=== PATIENT | male | born 1940 | race Caucasian/White ===

== ENCOUNTER 2024-04-29 15:44 | Inpatient (IN) ==
--- NOTE | 2024-04-29 16:07 | ED Triage Note ---
Date of Service April 29, 2024 Provider in Triage Author: Stephon Noyola History of Present Illness This patient was briefly evaluated while in triage. An abbreviated physical exam was performed. This patient is a 83-year-old Male who presents to the ED for evaluation called by PCP this afternoon "I'm in renal failure" "abnormal potassium" stopped Lisinopril on Monday due to abnormal labs had labs rechecked at [facility] this morning patient reports no symptoms current treatment for bladder cancer Physical Exam GENERAL: NAD CARDIOVASCULAR: RRR RESPIRATORY: CTA Initial orders for labs and / or imaging were placed and patient was placed in the waiting area until a bed is available. Please see further documentation for the full ED course.
[2024-04-29 17:21] LABS: Appearance Urine Cloudy (Clear); Bacteria Urine Automated None Seen (None Seen); Bilirubin Urine Negative (Negative); Blood Urine 1+ (Negative); Color Urine Yellow; Epithelial Cell Urine Auto 0-2 /hpf (0-2); Glucose Urine UA 3+ (Negative); Ketones Urine Negative (Negative); Leukocyte Esterase Urine Trace (Negative); Nitrite Urine Negative (Negative); Protein Urine 2+ (Negative); RBC Urine Automated 0-2 /hpf (0-2); Specific Gravity Urine 1.012 (1.000-1.030); Urobilinogen Urine Negative (Negative); WBC Urine Automated 21-50 /hpf (0-5); pH Urine 5.5 (4.5-7.5)
[2024-04-29 17:30] LABS: Basophils # (auto) 0.03 K/uL (0.00-0.20); Basophils % (auto) 0.6 %; Eosinophils # (auto) 0.16 K/uL (0.00-0.50); Eosinophils % (auto) 2.9 %; Hematocrit (blood only) 33.1 % (42.0-52.0); Hemoglobin 10.9 g/dl (14.0-18.0); Immature Granulocytes # (auto) 0.01 K/uL (0.01-0.20); Immature Granulocytes % (auto) 0.2 %; Lymphocytes % (auto) 20.2 %; Mean Corpuscular Hgb Conc 32.9 g/dL (32.0-36.0); Mean Corpuscular Volume 91.2 fL (80.0-100.0); Mean Platelet Volume 9.5 fL (9.4-12.4); Monocytes # (auto) 0.54 K/uL (0.11-0.59); Monocytes % (auto) 9.9 %; Neutrophils % (auto) 66.2 %; Platelet Count 177 K/uL (130-400); RDW Coefficient of Variation 13.3 % (11.5-14.5); RDW Standard Deviation 44.7 fL (36.4-46.3); Red Blood Count 3.63 M/uL (4.70-6.10); White Blood Count 5.44 K/ul (4.8-10.8)
[2024-04-29 17:47] LABS: Albumin Globulin Ratio 1.5 (0.9-2); Albumin Level 4.4 gm/dl (3.4-5.0); BUN Creatinine Ratio 16.2 (10-20); Bilirubin,Total 0.9 mg/dl (0.2-1.0); Calcium 9.4 mg/dl (8.6-10.3); Creatinine Clr Calc Pharmacy 14.1 ml/min; Est GFR (African American) 13.2 ml/min; Est GFR (Non-African American) 11.4 ml/min; Magnesium 1.9 mg/dl (1.7-2.4); Potassium 5.4 mmol/L (3.5-5.1); Total Protein 7.4 gm/dl (6.0-8.3)
[2024-04-29 18:01] LABS: Thyroid Stimulating Hormone 1.663 uIu/ml (0.300-4.500)
[2024-04-29] MEDS: ACETAMINOPHEN 1,000 MG/100 ML VIAL IV STA (19:24)
--- NOTE | 2024-04-29 19:31 | CT Scan Report ---
Exam(s): CT ABDOMEN + PELVIS Without Contrast EXAM: CT Abdomen and Pelvis Without Intravenous Contrast CLINICAL HISTORY: Reason for exam: Acute renal insufficiency. TECHNIQUE: Axial computed tomography images of the abdomen and pelvis without intravenous contrast. CTDI is 26.39 mGy and DLP is 1432.94 mGy-cm. Automated exposure control was utilized for the study. A dose lowering technique was utilized adhering to the principles of ALARA. COMPARISON: March 11, 2010 FINDINGS: Lung bases: Unremarkable. No mass. No consolidation. Heart: There is severe coronary and mitral calcification. The heart is mildly enlarged. ABDOMEN: Liver: Unremarkable. Gallbladder and bile ducts: There is a thin, 3 mm layer of sludge versus tiny calculi within the dependent portion of a nondilated gallbladder. No acute inflammation is seen. Pancreas: Unremarkable. No ductal dilation. Spleen: Unremarkable. No splenomegaly. Adrenals: Unremarkable. No mass. Kidneys and ureters: Slight perinephric stranding involving both kidneys. No hydronephrosis or ureterolithiasis is seen. 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 The stomach is nondistended. There is severe diverticulosis of the left and sigmoid colon had mild diverticulosis of the remaining colon. No signs of acute diverticulitis. Bowel loops are nondilated. No acute process is seen involving the bowel. PELVIS: Appendix: No findings to suggest acute appendicitis. Bladder: There is wall thickening and slight surrounding inflammation involving the urinary bladder suggesting cystitis. No stones. Reproductive: Unremarkable as visualized. ABDOMEN and PELVIS: Intraperitoneal space: Unremarkable. No free air. No significant fluid collection. Bones/joints: Moderate multilevel degenerative change are seen throughout the spine. No acute fracture or subluxation is seen. The hips and pelvis are intact. Soft tissues: Unremarkable. Vasculature: The abdominal aorta is mildly calcified but nondilated. Lymph nodes: Unremarkable. No enlarged lymph nodes. IMPRESSION: 1. Slight perinephric stranding involving both kidneys. No hydronephrosis or ureterolithiasis is seen. This is nonspecific but can be seen in renal insufficiency. 2. There is wall thickening and slight surrounding inflammation involving the urinary bladder suggesting cystitis. 3. 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 The stomach is nondistended. 4. There is severe coronary and mitral calcification. The heart is mildly enlarged. 5. There is severe diverticulosis of the left and sigmoid colon had mild diverticulosis of the remaining colon. No signs of acute diverticulitis. Bowel loops are nondilated. No acute process is seen involving the bowel. Electronically signed by: Tai Bolaños MD 04/29/24 19:30 PM
--- NOTE | 2024-04-29 19:54 | History & Physical Report ---
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 CBC, BMP, mag (2) Hyperkalemia: Plan: Mild; K 5.4 on arrival Continuous telemetry monitoring Trend BMP (3) Cystitis: Plan: No leukocytosis; afebrile Ciprofloxacin IV x 1 in the ED Will defer further antibiotics at this time Follow UCx (4) Diabetes mellitus, type 2: Plan: Last A1c 6.8% on 06/21/2023 Hold metformin Will defer starting insulin in the setting of ALEXYS BSG ACHS Adjust regimen as needed AM A1c (5) Lower back pain: Plan: Acetaminophen as needed (6) BPH w urinary obs/LUTS: Plan: Continue finasteride (7) Bladder cancer: Plan [facility] Renal, T2DM diet VTE PPx: Heparin 5000u SQ q12h History of Present Illness Chief Complaint: Referred by doctor for outpatient renal function labs Primary Care Provider: DO Sunny Cohen is a pleasant 83-year-old male with PMH of BPH, hematuria, CKD stage III, and bladder cancer. He presented on 04/29 at the behest of his PCP for outpatient labs drawn on 04/25 then reconfirmed today on 04/29. Patient was called after labs were drawn on Monday for elevated potassium, and was told to have his labs rechecked on Sunday 04/29. After that, he was told to go to the emergency room for acute renal failure. Patient is currently following with urology (Dr. Jackson) for treatment of his bladder cancer. He is currently receiving BCG treatments, with the last being on March 18. Following this treatment, he has had burning with urination and increased urinary frequency. He was placed on a course of doxycycline for a suspected UTI, but this was later discontinued on 04/25. Patient took all of his regular morning medications today; no recent change in medications. He has been on dapagliflozin for 2 to 3 years now. No prior history of kidney stones or issues with his kidney. He does report that he has had a recent change in diet, and has not been eating regularly, but he believes this is secondary to the doxycycline use. He also has a history of pioglitazone use, but was taken off this approximately 1 month ago. Patient reports that he is still producing urine, albeit more frequently. Patient denies smoking, tobacco use, and recent alcohol use. Patient's vitals are stable at time of admission. ED course: Ciprofloxacin 400 mg IV Acetaminophen 1000 mg IV ROS: Patient endorses burning with urination, increased urinary frequency, dry cough, and lower back pain. Patient denies fever, chills, night-sweats, dizziness/lightheadedness, MARIO, chest pain, SOB, abdominal pain, N/V/D, change in bowel habits, blood in stool, saddle anesthesia, or numbness/tingling in the legs. Allergies Allergy/AdvReac Type Severity Reaction Status Date / Time terbinafine Allergy Intermediate Rash Verified 04/29/24 19:17 Penicillins AdvReac Severe Vomiting Verified 04/29/24 19:17 clindamycin AdvReac Intermediate Vomiting Verified 04/29/24 19:17 Home Medications Medication Instructions Recorded Confirmed Type aspirin 81 mg tablet,delayed 81 mg PO QAM 06/28/23 04/29/24 History release (Adult Low Dose Aspirin) dapagliflozin propanediol 10 mg 10 mg PO QAM 06/28/23 04/29/24 History tablet (Farxiga) doxazosin 8 mg tablet 8 mg PO QAM 06/28/23 04/29/24 History iron,carbonyl 65 mg-vitamin C 125 1 tab PO QAM 06/28/23 04/29/24 History mg tablet,delayed release (Vitron-C) metformin 1,000 mg tablet 2,000 mg PO QPM 06/28/23 04/29/24 History omeprazole 40 mg capsule,delayed 40 mg PO QAM 06/28/23 04/29/24 History release rosuvastatin 40 mg tablet 40 mg PO QPM 06/28/23 04/29/24 History finasteride 5 mg tablet 5 mg PO QPM 07/11/23 04/29/24 History levothyroxine 150 mcg tablet 150 mcg PO QPM 07/11/23 04/29/24 History zinc sulfate 50 mg zinc (220 mg) 50 mg PO QAM 04/29/24 04/29/24 History tablet Past Med/Surg History Problem List (Updated 04/30/24 @ 08:[address]) Acute kidney injury superimposed on CKD (Acute) Diabetes mellitus, type 2 Lower back pain Cystitis Hyperkalemia Acute kidney injury superimposed on CKD CIS (carcinoma in situ of bladder) Bladder cancer CKD (chronic kidney disease), stage III Pulmonary hypertension 'borderline' per cardio; est PASP 35-40mmHg ECHO 07/2023 Encounter for pre-operative examination Hematuria Lower urinary tract symptoms (LUTS) Murmur BPH w urinary obs/LUTS Medical History Aortic valve sclerosis no stenosis per 07/2023 ECHO GERD (gastroesophageal reflux disease) Hyperlipidemia Hypertension with mild LVH (per cardio) Surgical History History of colonoscopy History of tonsillectomy History of adenoidectomy Social History Smoking Status: Former smoker Tobacco Type: Cigarettes and Cigars Smoking End Date: 1964; Hx Alcohol Use: No Hx Substance Use: No Preferred Language: Polish Communication Ability: Effective Visual Impairment: No Limitations Certified Professional Midwife Required: No Beliefs That Will Affect Care: None Current Living Situation: Personal Care Facility Feels Safe at Home: Yes Safety Concerns: Feels Safe At This Time Assistive Devices: Glasses Review of Systems Review of Systems: See HPI above Physical Exam Physical Exam: General: no acute distress; pleasant affect; non-toxic appearing; cooperative; SpO2 98% on RA HEENT: normocephalic, atraumatic; no scleral icterus; PERRLA; vision and hearing grossly intact Neck: supple; no lymphadenopathy; trachea midline Skin: warm, dry without signs of tenting; no cyanosis; no rashes, bruising, lesions, or erythema noted CV: chest wall NTP; RRR; S1/S2 normal; no murmurs/rubs/gallops; pulses intact and symmetric at radial, DP, and PT Lungs: no acute respiratory distress; symmetrical chest wall expansion; mild expiratory rhonchi in the upper lung jama bilaterally ABD: Soft, NTP; BS present; no rebound/guarding; no distention; negative CVA te nderness bilaterally MSK: no tics or fasciculations; no edema noted in the LEs b/l, non-erythematous Neuro: A&Ox3; normal mood and affect; fluent speech; no focal deficits; sensation grossly intact in the LEs b/l Results & Data Results & Data Vital Signs (Past 12 Hours) Vital Signs Temp Pulse Pulse Resp BP BP Pulse Ox 04/29/24 19:00 65 16 130/56 L 98 04/29/24 16:06 36.8 C 82 20 133/72 99 O2 Del Method 04/29/24 19:00 04/29/24 16:06 Room Air Laboratory Results Abnormal lab results 04/29/24 04/29/24 Range/Units 16:48 Unknown RBC 3.63 L (4.70-6.10) M/uL Hgb 10.9 L (14.0-18.0) g/dl Hct 33.1 L (42.0-52.0) % Lymph # (Auto) 1.10 L (1.20-3.40) K/uL Sodium 132 L (136-145) mmol/L Potassium 5.4 H (3.5-5.1) mmol/L Carbon Dioxide 17 L (21-32) mmol/L BUN 73 H (6-23) mg/dl Creatinine 4.50 H (0.6-1.4) mg/dl Glucose 112 H (70-99(Fasting)) mg/dl Urine Appearance Cloudy A (Clear) Urine Protein 2+ H (Negative) Urine Glucose (UA) 3+ H (Negative) Urine Blood 1+ H (Negative) Ur Leukocyte Esterase Trace H (Negative) Urine WBC (Auto) 21-50 H (0-5) /hpf U Hyaline Cast (Auto) 3-5 H (0-2) /lpf Diagnostic Findings Abdomen/Pelvis CT 04/29/24 17:54 Exam(s): CT ABDOMEN + PELVIS Without Contrast EXAM: CT Abdomen and Pelvis Without Intravenous Contrast CLINICAL HISTORY: Reason for exam: Acute renal insufficiency. TECHNIQUE: Axial computed tomography images of the abdomen and pelvis without intravenous contrast. CTDI is 26.39 mGy and DLP is 1432.94 mGy-cm. Automated exposure control was utilized for the study. A dose lowering technique was utilized adhering to the principles of ALARA. COMPARISON: March 11, 2010 FINDINGS: Lung bases: Unremarkable. No mass. No consolidation. Heart: There is severe coronary and mitral calcification. The heart is mildly enlarged. ABDOMEN: Liver: Unremarkable. Gallbladder and bile ducts: There is a thin, 3 mm layer of sludge versus tiny calculi within the dependent portion of a nondilated gallbladder. No acute inflammation is seen. Pancreas: Unremarkable. No ductal dilation. Spleen: Unremarkable. No splenomegaly. Adrenals: Unremarkable. No mass. Kidneys and ureters: Slight perinephric stranding involving both kidneys. No hydronephrosis or ureterolithiasis is seen. 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 The stomach is nondistended. There is severe diverticulosis of the left and sigmoid colon had mild diverticulosis of the remaining colon. No signs of acute diverticulitis. Bowel loops are nondilated. No acute process is seen involving the bowel. PELVIS: Appendix: No findings to suggest acute appendicitis. Bladder: There is wall thickening and slight surrounding inflammation involving the urinary bladder suggesting cystitis. No stones. Reproductive: Unremarkable as visualized. ABDOMEN and PELVIS: Intraperitoneal space: Unremarkable. No free air. No significant fluid collection. Bones/joints: Moderate multilevel degenerative change are seen throughout the spine. No acute fracture or subluxation is seen. The hips and pelvis are intact. Soft tissues: Unremarkable. Vasculature: The abdominal aorta is mildly calcified but nondilated. Lymph nodes: Unremarkable. No enlarged lymph nodes. IMPRESSION: 1. Slight perinephric stranding involving both kidneys. No hydronephrosis or ureterolithiasis is seen. This is nonspecific but can be seen in renal insufficiency. 2. There is wall thickening and slight surrounding inflammation involving the urinary bladder suggesting cystitis. 3. 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 The stomach is nondistended. 4. There is severe coronary and mitral calcification. The heart is mildly enlarged. 5. There is severe diverticulosis of the left and sigmoid colon had mild diverticulosis of the remaining colon. No signs of acute diverticulitis. Bowel loops are nondilated. No acute process is seen involving the bowel. Electronically signed by: Tai Bolaños MD 04/29/24 19:30 PM ECG Additional Comments: ECG revealed NSR at 78 bpm; QTc 446 Code Status & VTE Plan Code Status DNR/DNI VTE Prophylaxis Plan VTE Prophylaxis will be ordered: Yes Supervising Physician Co-Signing Physician Notes Attending addendum: I have physically seen this patient, have supervised the NEFTALY's activities, and agree with the H&P unless as otherwise noted. Assessment and Plan: Acute kidney injury superimposed on CKD- Creatinine 4.50 admission, with base 1.39 Symptoms of increased urinary frequency and burning with urination since 04/16 Hold lisinopril Hold Farxiga IV fluids as noted, NSS at 60 mL/h x 500 mL recheck laboratories in a.m. Bladder cancer- Receiving BCG vaccine Unlikely associated directly with acute kidney injury Consult urology Cystitis/BPH with LUTS- Status post Cipro 500 mg IV x 1 in ED Continue finasteride and doxazosin Follow urine culture and sensitivity, place on ceftriaxone if urinalysis looks significant Diabetes mellitus type 2- Hold metformin Placed on Accu-Cheks before meals and at bedtime with NovoLog coverage per scale Most recent hemoglobin A1c 6.8 on 06/21/2023, will recheck in a.m. PG Care Time/CCT Total # of Minutes Spent Total Time Spent with Patient: Total time spent is greater than 50% in coordination of care (as documented) at patient's floor/unit and/or counseling patient: C[place] [address] INT INP/OBS CARE 3/75MIN Patient Type Established Medical Decision Making High Complexity Diagnoses Acute kidney injury superimposed on CKD N17.9; N18.9 Hyperkalemia E87.5 Cystitis N30.90 Diabetes mellitus, type 2 E11.9 Lower back pain M54.50 BPH w urinary obs/LUTS N40.1; N13.8 Bladder cancer C67.9
[2024-04-29] MEDS ORDERED: GLUCOSE 40% GEL 15 GM TUBE PO PRN (20:46)
[2024-04-29] MEDS ORDERED: DEXTROSE 50% 50 ML SYRINGE IV PRN (20:46)
[2024-04-29] MEDS ORDERED: GLUCAGON FOR INJ 1 MG VIAL SQ PRN (20:46)
[2024-04-29] MEDS ORDERED: CARBOHYDRATES FOR HYPOGLYCEMIA PO PRN (20:46)
[2024-04-29] MEDS ORDERED: GLUCOSE 10 TAB/TUBE PO PRN (20:46)
[2024-04-29] MEDS: CIPROFLOXACIN / D5W 400 MG/200 ML BAG IV STA (20:51)
--- NOTE | 2024-04-29 20:54 | Urology Consultation ---
Date of Consultation April 29, 2024 Assessment & Plan (1) Cystitis: Patient has been admitted on the hospitalist service: The hospital service is currently treating the patient for his hyperkalemia and acute kidney injury There is concern that his acute kidney injury may be secondary to some medications he is taken and his Farxiga and lisinopril are being held Nephrotoxins are being avoided Serial labs are being followed There is concern the patient has underlying cystitis and he has thus received ciprofloxacin in the emergency department; additional antibiotic should be continued based on culture results Urology was consulted as patient is scheduled for an office cystoscopy on 05/01/[address] Jackson: Will make sure Dr. Jackson is aware of the patient's admission and the determination was made if patient will have a cystoscopy while he is here in the hospital if this will be rescheduled as an outpatient History of Present Illness Reason for Consultation: History of bladder cancer History of Present Illness This is an 83-year-old male with an underlying history of bladder cancer. The patient was referred to the emergency department by his primary care physician as the patient had outpatient labs drawn which showed the patient was noted to have an elevated potassium and concern for acute kidney injury so he was referred to the emergency department for further evaluation. Due to the patient's history of bladder cancer he was scheduled for cystoscopy with Dr. Jackson on 05/01/2024 for this reason urology was consulted to be made aware of his admission. The patient is currently receiving BCG treatments with the last one being on March 18. Currently the patient notes he is having urinary frequency but he does not have any dysuria or hematuria. He denies any back or flank pain. Since arrival to the emergency department the patient has had labs and imaging performed which I independently reviewed. A CT scan of the abdomen pelvis showed the patient had slight perinephric stranding involving both kidneys however no hydronephrosis or kidney stones were noted. There is wall thickening and some surrounding inflammation involving the urinary bladder suggestive of cystitis. Labs included CBC were white blood cell count platelet count were normal. Hemoglobin and hematocrit were 10.9 and 33.1. Chemistry profile showed sodium was 132 with a potassium of 5.4. His BUN and creatinine were 73 and 4.5. (This level of creatinine noted a marked elevation of this patient's baseline which typically runs from 1.3-1.6). Urinalysis showed cloudy urine which was negative for nitrites but did have 21-50 white blood cells per high-power field and no bacteria. Trace leukocyte Estrace was noted. At the time my interview he was resting comfortably in bed he was in no distress Allergies Allergy/AdvReac Type Severity Reaction Status Date / Time terbinafine Allergy Intermediate Rash Verified 04/29/24 19:17 Penicillins AdvReac Severe Vomiting Verified 04/29/24 19:17 clindamycin AdvReac Intermediate Vomiting Verified 04/29/24 19:17 Home Medications Medication Instructions Recorded Confirmed Type aspirin 81 mg tablet,delayed 81 mg PO QAM 06/28/23 04/29/24 History release (Adult Low Dose Aspirin) dapagliflozin propanediol 10 mg 10 mg PO QAM 06/28/23 04/29/24 History tablet (Farxiga) doxazosin 8 mg tablet 8 mg PO QAM 06/28/23 04/29/24 History iron,carbonyl 65 mg-vitamin C 125 1 tab PO QAM 06/28/23 04/29/24 History mg tablet,delayed release (Vitron-C) metformin 1,000 mg tablet 2,000 mg PO QPM 06/28/23 04/29/24 History omeprazole 40 mg capsule,delayed 40 mg PO QAM 06/28/23 04/29/24 History release rosuvastatin 40 mg tablet 40 mg PO QPM 06/28/23 04/29/24 History finasteride 5 mg tablet 5 mg PO QPM 07/11/23 04/29/24 History levothyroxine 150 mcg tablet 150 mcg PO QPM 07/11/23 04/29/24 History zinc sulfate 50 mg zinc (220 mg) 50 mg PO QAM 04/29/24 04/29/24 History tablet Patient History Medical History Aortic valve sclerosis no stenosis per 07/2023 ECHO GERD (gastroesophageal reflux disease) Hyperlipidemia Hypertension with mild LVH (per cardio) Surgical History History of colonoscopy History of tonsillectomy History of adenoidectomy Social History Smoking Status: Never smoker Tobacco Type: Cigarettes and Cigars Hx Alcohol Use: Yes Hx Substance Use: No Preferred Language: Ethiopian Visual Impairment: No Limitations Muck Operator Required: No Beliefs That Will Affect Care: None Current Living Situation: Alone Feels Safe at Home: Yes Assistive Devices: Denture - Upper and Glasses Review of Systems Review of Systems: All systems reviewed & are unremarkable except as noted in HPI & below Physical Exam Constitutional: WD/WN, vitals as above Eyes: Wears glasses ENMT: Ears: no hearing impairment and no external ear abnormality Mouth: no oropharynx abnormality Neck: trachea midline Respiratory: normal respiratory effort; no respiratory distress and no labored breathing Cardiovascular: Rate/Rhythm: regular rate and regular rhythm Gastrointestinal (Abdomen): Soft and nontender to palpation Musculoskeletal: No calf tenderness Skin: no rashes Neurologic: moves all extremities Psychiatric: A+Ox3, euthymic affect Results & Data Vital Signs (Past 12 Hours) Vital Signs Temp Pulse Pulse Resp BP BP Pulse Ox 04/29/24 19:00 65 16 130/56 L 98 04/29/24 16:06 36.8 C 82 20 133/72 99 O2 Del Method 04/29/24 19:00 04/29/24 16:06 Room Air PG Care Time/CCT Total # of Minutes Spent Total Time Spent with Patient: Total time spent is greater than 50% in coordination of care (as documented) at patient's floor/unit and/or counseling patient: Coding Level of Care Code 46323 INT INP/OBS CARE 3/75MIN Diagnoses Cystitis N30.90
--- NOTE | 2024-04-29 21:24 | Emergency Department Note ---
History of Present Illness General Chief Complaint: Referred by Doctor Stated Complaint: RENAL FAILURE Time Seen by Provider: 04/29/24 17:54 History of Present Illness Provider Complaint: + abnormal lab Returns today for: + called because of abnormal lab/test Description of abnormal result: Elevated kidney function Associated symptoms: no fever, no chills, no chest pain, no shortness of breath, no rash or no abdominal pain Home Medications Medication Instructions Recorded Confirmed Type aspirin 81 mg tablet,delayed 81 mg PO QAM 06/28/23 04/29/24 History release (Adult Low Dose Aspirin) dapagliflozin propanediol 10 mg 10 mg PO QAM 06/28/23 04/29/24 History tablet (Farxiga) doxazosin 8 mg tablet 8 mg PO QAM 06/28/23 04/29/24 History iron,carbonyl 65 mg-vitamin C 125 1 tab PO QAM 06/28/23 04/29/24 History mg tablet,delayed release (Vitron-C) metformin 1,000 mg tablet 2,000 mg PO QPM 06/28/23 04/29/24 History omeprazole 40 mg capsule,delayed 40 mg PO QAM 06/28/23 04/29/24 History release rosuvastatin 40 mg tablet 40 mg PO QPM 06/28/23 04/29/24 History finasteride 5 mg tablet 5 mg PO QPM 07/11/23 04/29/24 History levothyroxine 150 mcg tablet 150 mcg PO QPM 07/11/23 04/29/24 History zinc sulfate 50 mg zinc (220 mg) 50 mg PO QAM 04/29/24 04/29/24 History tablet Allergies Allergy/AdvReac Type Severity Reaction Status Date / Time terbinafine Allergy Intermediate Rash Verified 04/29/24 19:17 Penicillins AdvReac Severe Vomiting Verified 04/29/24 19:17 clindamycin AdvReac Intermediate Vomiting Verified 04/29/24 19:17 Past Med/Surg History Problem List (Updated 04/29/24 @ 21:27 by Alejandro Casanova MD) Acute kidney injury superimposed on CKD (Acute) Diabetes mellitus, type 2 Ha1c: 6.8% 06/2023 Lower back pain Cystitis Hyperkalemia Acute kidney injury superimposed on CKD CIS (carcinoma in situ of bladder) Bladder cancer CKD (chronic kidney disease), stage III Pulmonary hypertension 'borderline' per cardio; est PASP 35-40mmHg ECHO 07/2023 Encounter for pre-operative examination Hematuria Lower urinary tract symptoms (LUTS) Murmur BPH w urinary obs/LUTS Medical History Aortic valve sclerosis no stenosis per 07/2023 ECHO GERD (gastroesophageal reflux disease) Hyperlipidemia Hypertension with mild LVH (per cardio) Surgical History History of colonoscopy History of tonsillectomy History of adenoidectomy Social History Smoking Status: Never smoker Tobacco Type: Cigarettes and Cigars Hx Alcohol Use: Yes Hx Substance Use: No Preferred Language: [place] Visual Impairment: No Limitations Machine Package Sealer Required: No Beliefs That Will Affect Care: None Current Living Situation: Alone Feels Safe at Home: Yes Assistive Devices: Denture - Upper and Glasses Physical Exam 2 Vital Signs: Vital Signs - 24 hr 04/29/24 16:06 04/29/24 19:00 Temperature 36.8 C Temperature Source Temporal Artery Sc an Pulse Rate 82 Pulse Rate [Finger ] 65 Respiratory Rate 20 16 Respiratory Effort / Characteristics Non-Labored Sponta neous Respiratory Depth Normal Blood Pressure 133/72 Blood Pressure [Ri ght Arm] 130/56 L Blood Pressure Darlene n 92 Blood Pressure Darlene n [Right Arm] 80 Pulse Oximetry 99 98 Oxygen Delivery Me thod Room Air Sepsis Recent Feve r Within 48 Hours No Sepsis New/Unexpla ined Change in Men harpal Status No Sepsis Action Take n by Nursing No Action Required Physical Exam: Physical Exam GENERAL: oriented to person, place, and time. appears well-developed and well- nourished. HENT: Exam performed. - Head: Normocephalic and atraumatic. EYES: Conjunctivae and EOM are normal. Right eye exhibits no discharge. Left eye exhibits no discharge. No scleral icterus. NECK: Normal range of motion. Neck supple. No JVD present. CV: Normal rate, regular rhythm, normal heart sounds and intact distal pulses. There is no peripheral edema. Palpable radial pulses bue. PULM/CHEST: Effort normal and breath sounds normal. No respiratory distress. No stridor. no wheezes. no rales. ABD: The abdomen is soft. There is no tenderness. NEURO: Motor and sensation grossly intact. SKIN: Skin is warm and dry. He is not diaphoretic. PSYCH: normal mood and affect. Behavior is normal. Judgment and thought content normal. Course Course 1753: The patient was evaluated in room C11. A complete history and physical exam was performed Cardiac monitoring: An order was placed for continuous cardiac monitoring. The monitor shows a rate of 80 with sinus rhythm interpreted by me 1950: Vital signs stable. Labs are significant for BUN of 73 creatinine of 4.5. Potassium 5.4. CT of the abdomen pelvis shows some slight perinephric stranding involving both kidneys. No hydronephrosis. No kidney stones. Patient treated empirically with IV Cipro. Patient will be admitted to [facility] Dr. Garcia's team notified. Administered Medications Ciprofloxacin (Cipro / D5w) 400 mg in 200 mls @ 100 mls/hr IV NOW STA; Protocol Stop: 04/29/24 21:42 Last Admin: 04/29/24 20:51 Dose: 100 mls/hr Documented By: PAULINE Discontinued Medications Acetaminophen (Ofirmev) 1,000 mg in 100 mls @ 400 mls/hr IV NOW STA Stop: 04/29/24 19:10 Last Infusion: 04/29/24 19:42 Dose: Infused Documented By: Admin: 04/29/24 19:24 Dose: 400 mls/hr Documented By: PAULINE Medical Decision Making Medical Records Attestation: I reviewed the patient's medical records. External medical records reviewed. Patient's creatinine usually runs less than 2. Laboratory Data Attestation: I reviewed the patient's lab results. 04/29/24 16:48 04/29/24 16:48 Lab Results 04/29/24 04/29/24 Range/Units 16:48 Unknown WBC 5.44 (4.8-10.8) K/ul RBC 3.63 L (4.70-6.10) M/uL Hgb 10.9 L (14.0-18.0) g/dl Hct 33.1 L (42.0-52.0) % MCV 91.2 (80.0-100.0) fL MCH 30.0 (25.0-34.0) pg MCHC 32.9 (32.0-36.0) g/dL RDW Std Deviation 44.7 (36.4-46.3) fL RDW Coeff of Liss 13.3 (11.5-14.5) % Plt Count 177 (130-400) K/uL MPV 9.5 (9.4-12.4) fL Immature Gran % (Auto) 0.2 % Neut % (Auto) 66.2 % Lymph % (Auto) 20.2 % [place] % (Auto) 9.9 % Eos % (Auto) 2.9 % Baso % (Auto) 0.6 % Neut # (Auto) 3.60 (1.40-6.50) K/uL Lymph # (Auto) 1.10 L (1.20-3.40) K/uL [place] # (Auto) 0.54 (0.11-0.59) K/uL Eos # (Auto) 0.16 (0.00-0.50) K/uL Baso # (Auto) 0.03 (0.00-0.20) K/uL Immature Gran # (Auto) 0.01 (0.01-0.20) K/uL Sodium 132 L (136-145) mmol/L Potassium 5.4 H (3.5-5.1) mmol/L Chloride 106 (98-107) mmol/L Carbon Dioxide 17 L (21-32) mmol/L Anion Gap 9 (3-11) BUN 73 H (6-23) mg/dl Creatinine 4.50 H (0.6-1.4) mg/dl Est Cr Clr Drug Dosing 14.1 ml/min Est GFR ( Amer) 13.2 ml/min Est GFR (Non-Af Amer) 11.4 ml/min BUN/Creatinine Ratio 16.2 (10-20) Glucose 112 H (70-99(Fasting)) mg/dl Calcium 9.4 (8.6-10.3) mg/dl Magnesium 1.9 (1.7-2.4) mg/dl Total Bilirubin 0.9 (0.2-1.0) mg/dl AST 14 (13-39) U/L ALT 14 (7-52) U/L Alkaline Phosphatase 85 (34-104) U/L Total Protein 7.4 (6.0-8.3) gm/dl Albumin 4.4 (3.4-5.0) gm/dl Globulin 3.0 (2.5-4.0) gm/dl Albumin/Globulin Ratio 1.5 (0.9-2) TSH 1.663 (0.300-4.500) uIu/ml Urine Color Yellow Urine Appearance Cloudy A (Clear) Urine pH 5.5 (4.5-7.5) Ur Specific [place] 1.012 (1.000-1.030) Urine Protein 2+ H (Negative) Urine Glucose (UA) 3+ H (Negative) Urine Ketones Negative (Negative) Urine Blood 1+ H (Negative) Urine Nitrite Negative (Negative) Urine Bilirubin Negative (Negative) Urine Urobilinogen Negative (Negative) Ur Leukocyte Esterase Trace H (Negative) Urine WBC (Auto) 21-50 H (0-5) /hpf Urine RBC (Auto) 0-2 (0-2) /hpf U Hyaline Cast (Auto) 3-5 H (0-2) /lpf U Epithel Cells (Auto) 0-2 (0-2) /hpf Urine Bacteria (Auto) None Seen (None Seen) Imaging Data Radiologist's Impression: Abdomen/Pelvis CT 04/29/24 17:54 Exam(s): CT ABDOMEN + PELVIS Without Contrast EXAM: CT Abdomen and Pelvis Without Intravenous Contrast CLINICAL HISTORY: Reason for exam: Acute renal insufficiency. TECHNIQUE: Axial computed tomography images of the abdomen and pelvis without intravenous contrast. CTDI is 26.39 mGy and DLP is 1432.94 mGy-cm. Automated exposure control was utilized for the study. A dose lowering technique was utilized adhering to the principles of ALARA. COMPARISON: March 11, 2010 FINDINGS: Lung bases: Unremarkable. No mass. No consolidation. Heart: There is severe coronary and mitral calcification. The heart is mildly enlarged. ABDOMEN: Liver: Unremarkable. Gallbladder and bile ducts: There is a thin, 3 mm layer of sludge versus tiny calculi within the dependent portion of a nondilated gallbladder. No acute inflammation is seen. Pancreas: Unremarkable. No ductal dilation. Spleen: Unremarkable. No splenomegaly. Adrenals: Unremarkable. No mass. Kidneys and ureters: Slight perinephric stranding involving both kidneys. No hydronephrosis or ureterolithiasis is seen. 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 The stomach is nondistended. There is severe diverticulosis of the left and sigmoid colon had mild diverticulosis of the remaining colon. No signs of acute diverticulitis. Bowel loops are nondilated. No acute process is seen involving the bowel. PELVIS: Appendix: No findings to suggest acute appendicitis. Bladder: There is wall thickening and slight surrounding inflammation involving the urinary bladder suggesting cystitis. No stones. Reproductive: Unremarkable as visualized. ABDOMEN and PELVIS: Intraperitoneal space: Unremarkable. No free air. No significant fluid collection. Bones/joints: Moderate multilevel degenerative change are seen throughout the spine. No acute fracture or subluxation is seen. The hips and pelvis are intact. Soft tissues: Unremarkable. Vasculature: The abdominal aorta is mildly calcified but nondilated. Lymph nodes: Unremarkable. No enlarged lymph nodes. IMPRESSION: 1. Slight perinephric stranding involving both kidneys. No hydronephrosis or ureterolithiasis is seen. This is nonspecific but can be seen in renal insufficiency. 2. There is wall thickening and slight surrounding inflammation involving the urinary bladder suggesting cystitis. 3. 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 The stomach is nondistended. 4. There is severe coronary and mitral calcification. The heart is mildly enlarged. 5. There is severe diverticulosis of the left and sigmoid colon had mild diverticulosis of the remaining colon. No signs of acute diverticulitis. Bowel loops are nondilated. No acute process is seen involving the bowel. Electronically signed by: Tai Bolaños MD 04/29/24 19:30 PM [facility] Narrative 1754: The patient was evaluated in room C11. A complete history and physical exam was performed Cardiac monitoring: An order was placed for continuous cardiac monitoring. The monitor shows a rate of 80 with sinus rhythm interpreted by in 1950: Vital signs stable. Labs are significant for BUN of 73 creatinine of 4.5. Potassium 5.4. CT of the abdomen pelvis shows some slight perinephric stranding involving both kidneys. No hydronephrosis. No kidney stones. Patient treated empirically with IV Cipro. Patient will be admitted to the [facility] Dr. Garcia's team notified. Impression & Plan Acute kidney injury superimposed on CKD Discharge Plan Visit Data Chief Complaint: Referred by Doctor Stated Complaint: RENAL FAILURE ED Provider: Alejandro Casanova Discharge Problem: Acute kidney injury superimposed on CKD Patient Disposition: Admitted As Inpatient Forms Stand Alone Forms: My [facility] Prescriptions Prescriptions: No Action levothyroxine 150 mcg tablet 150 mcg PO QPM finasteride 5 mg tablet 5 mg PO QPM rosuvastatin 40 mg tablet 40 mg PO QPM metformin 1,000 mg tablet 2,000 mg PO QPM doxazosin 8 mg tablet 8 mg PO QAM omeprazole 40 mg capsule,delayed release(DR/EC) 40 mg PO QAM Farxiga 10 mg tablet 10 mg PO QAM Vitron-C 65 mg iron- 125 mg tablet,delayed release (DR/EC) 1 tab PO QAM Rx Instructions: TAKES AT 0300 aspirin [Adult Low Dose Aspirin] 81 mg tablet,delayed release (DR/EC) 81 mg PO QAM zinc sulfate 50 mg zinc (220 mg) Tablet 50 mg PO QAM Referrals Referrals: Milind Street DO [Primary Care Provider] -
[2024-04-29] MEDS: LACTATED RINGER'S 500 ML IV SCH (21:52)
[2024-04-30] MEDS: ONDANSETRON INJ 2 MG/ML 2 ML VIAL IV PRN (01:16)
[2024-04-30 01:21] LABS: BUN Creatinine Ratio 16.2 (10-20); Calcium 8.6 mg/dl (8.6-10.3); Creatinine Clr Calc Pharmacy 14.3 ml/min; Est GFR (African American) 13.4 ml/min; Est GFR (Non-African American) 11.6 ml/min; Potassium 4.9 mmol/L (3.5-5.1)
[2024-04-30] MEDS: LEVOTHYROXINE SODIUM 150 MCG TABLET PO SCH (01:58)
[2024-04-30] MEDS: FINASTERIDE 5 MG TAB PO SCH (01:58)
[2024-04-30] MEDS: ROSUVASTATIN CALCIUM 20 MG TAB PO SCH (01:59)
[2024-04-30] MEDS: HEPARIN SOD 5,000 UNIT/0.5 ML VIAL SQ SCH (01:59)
--- NOTE | 2024-04-30 06:27 | Electrocardiogram Report ---
Test Reason : Blood Pressure : / mmHG Vent. Rate : 078 BPM Atrial Rate : 078 BPM P-R Int : 198 ms QRS Dur : 088 ms QT Int : 392 ms P-R-T Axes : 059 027 018 degrees QTc Int : 446 ms Normal sinus rhythm Normal ECG When compared with ECG of 11-JUL-2023 12:02, No significant change was found Confirmed by Eldon Rayo ([id number]) on 04/30/2024 6:26:52 AM Referred By: Confirmed By:Eldon Rayo
[2024-04-30 06:32] LABS: Basophils # (auto) 0.04 K/uL (0.00-0.20); Basophils % (auto) 0.7 %; Eosinophils # (auto) 0.21 K/uL (0.00-0.50); Eosinophils % (auto) 3.5 %; Hematocrit (blood only) 30.8 % (42.0-52.0); Hemoglobin 10.4 g/dl (14.0-18.0); Immature Granulocytes # (auto) 0.02 K/uL (0.01-0.20); Immature Granulocytes % (auto) 0.3 %; Lymphocytes # (auto) 1.16 K/uL (1.20-3.40); Lymphocytes % (auto) 19.5 %; Mean Corpuscular Hemoglobin 30.3 pg (25.0-34.0); Mean Corpuscular Hgb Conc 33.8 g/dL (32.0-36.0); Mean Corpuscular Volume 89.8 fL (80.0-100.0); Mean Platelet Volume 9.7 fL (9.4-12.4); Monocytes # (auto) 0.57 K/uL (0.11-0.59); Monocytes % (auto) 9.6 %; Neutrophils # (auto) 3.96 K/uL (1.40-6.50); Neutrophils % (auto) 66.4 %; Platelet Count 165 K/uL (130-400); RDW Coefficient of Variation 13.3 % (11.5-14.5); RDW Standard Deviation 43.8 fL (36.4-46.3); Red Blood Count 3.43 M/uL (4.70-6.10); White Blood Count 5.96 K/ul (4.8-10.8)
[2024-04-30 07:01] LABS: Estimated Average Glucose 148 mg/dl; Hemoglobin A1C 6.8 % (4.5-5.6)
[2024-04-30 07:01] LABS: BUN Creatinine Ratio 16.3 (10-20); Calcium 8.7 mg/dl (8.6-10.3); Creatinine Clr Calc Pharmacy 15.5 ml/min; Est GFR (African American) 13.8 ml/min; Est GFR (Non-African American) 11.9 ml/min; Magnesium 1.8 mg/dl (1.7-2.4); Potassium 5.8 mmol/L (3.5-5.1)
[2024-04-30] MEDS: SODIUM ZIRCONIUM CYCLOSILICATE 10 GM PACKET PO SCH (09:01)
[2024-04-30] MEDS: ASPIRIN 81 MG ECTAB PO SCH (09:08)
[2024-04-30] MEDS: cefTRIAXone SODIUM 2,000 MG/50 ML BAG IV SCH (09:09)
[2024-04-30] MEDS: DOXAZosin MESYLATE 4 MG TAB PO SCH (09:09)
[2024-04-30] MEDS: PANTOprazole 40 MG TAB PO SCH (09:09)
--- NOTE | 2024-04-30 10:55 | Urology Progress Note ---
Date of Service April 30, 2024 Assessment & Plan (1) Cystitis: (2) Acute kidney injury superimposed on CKD: Plan: 83-year-old male with history of bladder cancer status post TURBT and BCG therapy admitted for acute kidney injury, hyperkalemia, and cystitis. Patient afebrile, hemodynamically stable Labs today reviewedcreatinine slightly improved at 4.35, no leukocytosis, hemoglobin 10.4 Continue to trend labs Urine culture is pending Continue with broad-spectrum antibiotics and narrow per sensitivity data Urinary symptoms may be secondary to BCG therapy Patient is voiding spontaneously, continue to monitor emptying with bladder scan as needed Patient's outpatient cystoscopy scheduled on 05/01 will be rescheduled to a later date No acute intervention at this time Continue supportive care, antibiotics, and medical management per hospital medicine service will follow peripherally, please contact us with any questions or concerns Admission and Anticipated Discharge Date Admission Date: April 29, 2024 Subjective Patient seen and examined at bedside Generally doing well Denies pain He is voiding spontaneously Reports dysuria and urinary frequency, no hematuria Offers no additional complaints He is scheduled for outpatient cystoscopy with Dr. Jackson tomorrow Review of Systems Constitutional: as per Subjective / HPI Genitourinary: + as per Subjective / HPI Physical Exam Constitutional: well developed and well nourished; no acute distress Respiratory: normal respiratory effort; no respiratory distress and no labored breathing Gastrointestinal (Abdomen): Inspection/Auscultation: abdomen normal to inspection Musculoskeletal: Head/Neck/Chest: normocephalic Neurologic: moves all extremities and awake Psychiatric: Orientation: alert and oriented x 3 Results & Data Vital Signs (Past 12 Hours) Vital Signs Temp Pulse Pulse Resp BP Pulse Ox Pulse Ox 04/30/24 07:32 04/30/24 07:30 36.3 C L 62 20 131/64 97 04/30/24 07:16 62 04/30/24 03:19 36.3 C L 59 L 16 120/62 97 04/30/24 00:58 100 04/30/24 00:47 67 04/30/24 00:40 36.3 C L 75 18 137/66 100 O2 Del Method O2 Del Method 04/30/24 07:32 Room Air 04/30/24 07:30 Room Air 04/30/24 07:16 04/30/24 03:19 Room Air 04/30/24 00:58 Room Air 04/30/24 00:47 04/30/24 00:40 Room Air PG Care Time/CCT Total # of Minutes Spent Total Time Spent with Patient: Total time spent is greater than 50% in coordination of care (as documented) at patient's floor/unit and/or counseling patient: Coding Level of Care Code 62191 SUB INP/OBS CARE 10/26MIN Diagnoses Cystitis N30.90 Acute kidney injury superimposed on CKD N17.9; N18.9
--- NOTE | 2024-04-30 11:48 | Hospitalist Progress Note ---
Date of Service April 30, 2024 Assessment & Plan (1) Acute kidney injury superimposed on CKD: Plan: Patient was admitted to the hospital on account of worsening burning during urination and also frequency Found to have elevated creatinine of 4.50 on outpatient labs drawn 04/29/2024 Here in the hospital, CT abdomen and pelvis was done which showed evidence of cystitis. Urine cultures ordered also obtained Worsening renal function could be multifactorial, -Started on gentle IV hydration with mild improvement in creatinine function. Will also obtain urine eosinophils Avoid nephrotoxic's Continue to hold lisinopril and Farxiga (2) Hyperkalemia: Plan: Worsening hyperkalemia Start Lokelma 10 mg 3 times daily Recheck BMP (3) Cystitis: Plan: Cystitis with evidence of UTI Continue IV ceftriaxone Await urine cultures (4) Diabetes mellitus, type 2: Plan: Last A1c 6.8% on 06/21/2023 Hold metformin Will defer starting insulin in the setting of ALEXYS BSG ACHS Adjust regimen as needed AM A1c (5) Lower back pain: Plan: Acetaminophen as needed (6) BPH w urinary obs/LUTS: Plan: Continue finasteride (7) Bladder cancer: Plan: Plan was for outpatient cystoscopy by urology on the While in the hospital, they may elect to do it here. Plan Disposition: Admit to [facility] telemetry DNR/DNI Renal, T2DM diet VTE PPx: Heparin 5000u SQ q12h Admission and Anticipated Discharge Date Admission Date: April 29, 2024 Subjective Patient seen and examined, still has some suprapubic discomfort even with a Smith catheter in. Review of Systems Review of Systems: All systems reviewed are negative, apart from the ones contained in the history. Physical Exam Physical Exam: The patient is awake, alert and oriented 3, well developed and well nourished, normocephalic and atraumatic, lying in bed and in no acute distress. HEENT--PERRL, EOMI, mucous membranes and oropharynx mildly dry Neck--supple. No JVD. No bruits. Thyroid normal, trachea midline, no adenopathy. Heart--normal S1 and S2. No murmurs, rubs or gallops. Lungs--clear bilaterally, no respiratory distress, no accessory muscle use. Abdomen--normal bowel sounds and soft. Extremities--no cyanosis or clubbing. No edema. Dermatologic--normal skin turgor, normal color, no abnormal lymph nodes, no rash. Neurologic--cranial nerves II through XII grossly intact. Rheumatologic--normal range of motion. Psychiatric--normal affect. Results & Data Results & Data Vital Signs (Past 12 Hours) Vital Signs Temp Pulse Pulse Resp BP Pulse Ox Pulse Ox 04/30/24 11:13 97.5 F L 70 20 122/65 97 04/30/24 07:32 04/30/24 07:30 97.3 F L 62 20 131/64 97 04/30/24 07:16 62 04/30/24 03:19 97.3 F L 59 L 16 120/62 97 04/30/24 00:58 100 04/30/24 00:47 67 04/30/24 00:40 97.3 F L 75 18 137/66 100 O2 Del Method O2 Del Method 04/30/24 11:13 Room Air 04/30/24 07:32 Room Air 04/30/24 07:30 Room Air 04/30/24 07:16 04/30/24 03:19 Room Air 04/30/24 00:58 Room Air 04/30/24 00:47 04/30/24 00:40 Room Air PG Care Time/CCT Total # of Minutes Spent Total Time Spent with Patient: Total time spent is greater than 50% in coordination of care (as documented) at patient's floor/unit and/or counseling patient: Coding Level of Care Code 98344 SUB INP/OBS CARE 2/35MIN Diagnoses Acute kidney injury superimposed on CKD N17.9; N18.9 Hyperkalemia E87.5 Cystitis N30.90 Diabetes mellitus, type 2 E11.9 Lower back pain M54.50 BPH w urinary obs/LUTS N40.1; N13.8 Bladder cancer C67.9 Time Spent (min) 35
[2024-04-30] MEDS: SODIUM CHLORIDE 0.9% 1,000 ML IV SCH (12:20)
[2024-05-01 06:06] LABS: Basophils # (auto) 0.04 K/uL (0.00-0.20); Basophils % (auto) 0.8 %; Eosinophils # (auto) 0.32 K/uL (0.00-0.50); Hematocrit (blood only) 29.4 % (42.0-52.0); Hemoglobin 9.8 g/dl (14.0-18.0); Immature Granulocytes # (auto) 0.02 K/uL (0.01-0.20); Immature Granulocytes % (auto) 0.4 %; Lymphocytes # (auto) 1.15 K/uL (1.20-3.40); Lymphocytes % (auto) 21.7 %; Mean Corpuscular Hemoglobin 30.6 pg (25.0-34.0); Mean Corpuscular Hgb Conc 33.3 g/dL (32.0-36.0); Mean Corpuscular Volume 91.9 fL (80.0-100.0); Mean Platelet Volume 9.4 fL (9.4-12.4); Monocytes # (auto) 0.62 K/uL (0.11-0.59); Monocytes % (auto) 11.7 %; Neutrophils # (auto) 3.14 K/uL (1.40-6.50); Neutrophils % (auto) 59.4 %; Platelet Count 146 K/uL (130-400); RDW Coefficient of Variation 13.3 % (11.5-14.5); RDW Standard Deviation 45.4 fL (36.4-46.3); White Blood Count 5.29 K/ul (4.8-10.8)
[2024-05-01 06:23] LABS: BUN Creatinine Ratio 14.9 (10-20); Calcium 8.1 mg/dl (8.6-10.3); Creatinine Clr Calc Pharmacy 15.9 ml/min; Est GFR (African American) 14.2 ml/min; Est GFR (Non-African American) 12.3 ml/min; Potassium 5.1 mmol/L (3.5-5.1)
[2024-05-01] MEDS: ACETAMINOPHEN 325 MG TAB PO PRN (08:34)
--- NOTE | 2024-05-01 14:09 | Hospitalist Progress Note ---
Date of Service May 01, 2024 Assessment & Plan (1) Acute kidney injury superimposed on CKD: Plan: Patient was admitted to the hospital on account of worsening burning during urination and also frequency Found to have elevated creatinine of 4.50 on outpatient labs drawn 04/29/2024 Here in the hospital, CT abdomen and pelvis was done which showed evidence of cystitis. Urine cultures ordered also obtained Worsening renal function could be multifactorial, Some improvement in renal function following gentle IV hydration Avoid nephrotoxic's Continue to hold lisinopril and Farxiga (2) Hyperkalemia: Plan: Resolved (3) Cystitis: Plan: Cystitis with evidence of UTI Continue IV ceftriaxone Urine cultures negative so far (4) Diabetes mellitus, type 2: Plan: Last A1c 6.8% on 06/21/2023 Hold metformin Will defer starting insulin in the setting of ALEXYS BSG ACHS Adjust regimen as needed AM A1c (5) Lower back pain: Plan: Acetaminophen as needed (6) BPH w urinary obs/LUTS: Plan: Continue finasteride (7) Bladder cancer: Plan: Plan was for outpatient cystoscopy by urology on the While in the hospital, they may elect to do it here. Plan Disposition: Hopefully discharge in next 24 hours follow-up urology and nephrology outpatient DNR/DNI Renal, T2DM diet VTE PPx: Heparin 5000u SQ q12h Admission and Anticipated Discharge Date Admission Date: April 29, 2024 Subjective Patient seen and examined, His son by the bedside, denies any new complaints. Wants to go home Review of Systems Review of Systems: All systems reviewed are negative, apart from the ones contained in the history. Physical Exam Physical Exam: The patient is awake, alert and oriented 3, well developed and well nourished, normocephalic and atraumatic, lying in bed and in no acute distress. HEENT--PERRL, EOMI, mucous membranes and oropharynx mildly dry Neck--supple. No JVD. No bruits. Thyroid normal, trachea midline, no adenopathy. Heart--normal S1 and S2. No murmurs, rubs or gallops. Lungs--clear bilaterally, no respiratory distress, no accessory muscle use. Abdomen--normal bowel sounds and soft. Extremities--no cyanosis or clubbing. No edema. Dermatologic--normal skin turgor, normal color, no abnormal lymph nodes, no rash. Neurologic--cranial nerves II through XII grossly intact. Rheumatologic--normal range of motion. Psychiatric--normal affect. Results & Data Results & Data Vital Signs (Past 12 Hours) Vital Signs Temp Pulse Pulse Resp BP Pulse Ox O2 Del Method 05/01/24 13:12 97.9 F 60 16 138/71 96 Room Air 05/01/24 08:29 97.3 F L 63 16 133/63 97 Room Air 05/01/24 07:34 56 L 05/01/24 03:44 98.4 F 67 18 124/60 97 Room Air PG Care Time/CCT Total # of Minutes Spent Total Time Spent with Patient: Total time spent is greater than 50% in coordination of care (as documented) at patient's floor/unit and/or counseling patient: Coding Level of Care Code 18813 SUB INP/OBS CARE 2/35MIN Diagnoses Acute kidney injury superimposed on CKD N17.9; N18.9 Hyperkalemia E87.5 Cystitis N30.90 Diabetes mellitus, type 2 E11.9 Lower back pain M54.50 BPH w urinary obs/LUTS N40.1; N13.8 Bladder cancer C67.9 Time Spent (min) 35
[2024-05-02 08:21] LABS: Basophils # (auto) 0.03 K/uL (0.00-0.20); Basophils % (auto) 0.6 %; Eosinophils # (auto) 0.24 K/uL (0.00-0.50); Hematocrit (blood only) 29.5 % (42.0-52.0); Hemoglobin 9.8 g/dl (14.0-18.0); Immature Granulocytes # (auto) 0.02 K/uL (0.01-0.20); Immature Granulocytes % (auto) 0.4 %; Lymphocytes % (auto) 25.2 %; Mean Corpuscular Hemoglobin 30.6 pg (25.0-34.0); Mean Corpuscular Hgb Conc 33.2 g/dL (32.0-36.0); Mean Corpuscular Volume 92.2 fL (80.0-100.0); Mean Platelet Volume 9.7 fL (9.4-12.4); Monocytes # (auto) 0.54 K/uL (0.11-0.59); Monocytes % (auto) 11.3 %; Neutrophils # (auto) 2.74 K/uL (1.40-6.50); Neutrophils % (auto) 57.5 %; Platelet Count 148 K/uL (130-400); RDW Coefficient of Variation 13.3 % (11.5-14.5); RDW Standard Deviation 45.2 fL (36.4-46.3); White Blood Count 4.77 K/ul (4.8-10.8)
[2024-05-02 08:39] LABS: BUN Creatinine Ratio 14.4 (10-20); Calcium 8.1 mg/dl (8.6-10.3); Est GFR (African American) 16.5 ml/min; Est GFR (Non-African American) 14.3 ml/min; Potassium 4.9 mmol/L (3.5-5.1)
--- NOTE | 2024-05-02 12:54 | Discharge Summary ---
Date of Service May 02, 2024 Admission HPI Per Admitting Provider Sunny is a pleasant 83-year-old male with PMH of BPH, hematuria, CKD stage III, and bladder cancer. He presented on 04/29 at the behest of his PCP for outpatient labs drawn on 04/25 then reconfirmed today on 04/29. Patient was called after labs were drawn on Monday for elevated potassium, and was told to have his labs rechecked on Sunday 04/29. After that, he was told to go to the emergency room for acute renal failure. Patient is currently following with urology (Dr. Jackson) for treatment of his bladder cancer. He is currently receiving BCG treatments, with the last being on March 18. Following this treatment, he has had burning with urination and increased urinary frequency. He was placed on a course of doxycycline for a suspected UTI, but this was later discontinued on 04/25. Patient took all of his regular morning medications today; no recent change in medications. He has been on dapagliflozin for 2 to 3 years now. No prior history of kidney stones or issues with his kidney. He does report that he has had a recent change in diet, and has not been eating regularly, but he believes this is secondary to the doxycycline use. He also has a history of pioglitazone use, but was taken off this approximately 1 month ago. Patient reports that he is still producing urine, albeit more frequently. Patient denies smoking, tobacco use, and recent alcohol use. Patient's vitals are stable at time of admission. ED course: Ciprofloxacin 400 mg IV Acetaminophen 1000 mg IV ROS: Patient endorses burning with urination, increased urinary frequency, dry cough, and lower back pain. Patient denies fever, chills, night-sweats, dizziness/lightheadedness, MARIO, chest pain, SOB, abdominal pain, N/V/D, change in bowel habits, blood in stool, saddle anesthesia, or numbness/tingling in the legs. Admission Exam (Per Admitting) Constitutional The patient is awake, alert and oriented 3, well developed and well nourished, normocephalic and atraumatic, lying in bed and in no acute distress. HEENT--PERRL, EOMI, mucous membranes and oropharynx mildly dry Neck--supple. No JVD. No bruits. Thyroid normal, trachea midline, no adenopathy. Heart--normal S1 and S2. No murmurs, rubs or gallops. Lungs--clear bilaterally, no respiratory distress, no accessory muscle use. Abdomen--normal bowel sounds and soft. Extremities--no cyanosis or clubbing. No edema. Dermatologic--normal skin turgor, normal color, no abnormal lymph nodes, no rash. Neurologic--cranial nerves II through XII grossly intact. Rheumatologic--normal range of motion. Psychiatric--normal affect. Discharge Data Consultations 04/29/24 19:48 ED Decision to Admit Stat 04/29/24 19:51 ED Decision to Admit Stat 04/29/24 20:27 Consult Urology Routine Hospital Course (1) Acute kidney injury superimposed on CKD: Patient was admitted to the hospital on account of worsening burning during urination and also frequency Found to have elevated creatinine of 4.50 on outpatient labs drawn 04/29/2024 Here in the hospital, CT abdomen and pelvis was done which showed evidence of cystitis. Urine cultures ordered also obtained Worsening renal function could be multifactorial, Some improvement in renal function following gentle IV hydration Avoid nephrotoxic's Continue to hold lisinopril and Farxiga (2) Hyperkalemia: Resolved (3) Cystitis: Cystitis with evidence of UTI Continue IV ceftriaxone Urine cultures negative so far (4) Diabetes mellitus, type 2: Last A1c 6.8% on 06/21/2023 Hold metformin Will defer starting insulin in the setting of ALEXYS BSG ACHS Adjust regimen as needed AM A1c (5) Lower back pain: Acetaminophen as needed (6) BPH w urinary obs/LUTS: Continue finasteride (7) Bladder cancer: Plan was for outpatient cystoscopy by urology on the While in the hospital, they may elect to do it here. Plan Disposition: Hopefully discharge in next 24 hours follow-up urology and nephrology outpatient DNR/DNI Renal, T2DM diet VTE PPx: Heparin 5000u SQ q12h Coding Level of Care Code 04108 INP/OBS DISCH >30 MIN Diagnoses Acute kidney injury superimposed on CKD N17.9; N18.9 Hyperkalemia E87.5 Cystitis N30.90 Diabetes mellitus, type 2 E11.9 Lower back pain M54.50 BPH w urinary obs/LUTS N40.1; N13.8 Bladder cancer C67.9 Time Spent (min) 35
--- NOTE | 2024-05-03 13:57 | Coding Query ---
CODING QUERY To promote full compliance with coding requirements relating to patient care, provider participation is requested in all cases of loom tuner uncertainty. Please assist us with the question(s) below: Coding Question(s): Further specification/clarification is needed to accurate profile/code the patient's cystitis. Please clarify the acuity of the cystitis. [ x ] Acute [ ] Chronic [ ] Acute on chronic [ ] Other [ ] Unable to determine Physician's Response(s): Thank you Paz Mulligan Principal Diagnosis: "that condition established after study, to be chiefly responsible for occasioning the admission of the patient to the hospital for care." Co-Existing Principal Diagnosis: "when two or more diagnoses equally meet the criteria for principal diagnosis as determined by the circumstances of admission, diagnostic work up, and/or therapy provided, and the Alphabetic Index, Tabular List, or another coding guideline does not provide sequencing direction, any one of the diagnoses may be sequenced first." "When the physician has documented what appears to be a current diagnosis in the body of the record, but has not included the diagnosis in the final diagnostic statement, the physician should be asked whether the diagnosis should be added." (Source Coding [facility] 2 QTR90. p3-4) THOMAS
== END 2024-05-02 10:47 | disposition home or self-care (01) | DRG 683 ==
LOC: SUATTDRO → ED 15:44 → SUATTDRO 20:35 → 2N 20:35